=== PATIENT | female | born 1970 | race Caucasian/White ===

== ENCOUNTER 2024-02-17 12:45 | Emergency (ER) | payer OTHER ==
[2024-02-17] MEDS ORDERED: FAMOTIDINE 50 ML IV ONE (12:50)
[2024-02-17] MEDS ORDERED: MORPHINE Sulfate 2 MG/ML SYR IV ONE (12:50)
[2024-02-17] MEDS ORDERED: SODIUM CHLORIDE 0.9% 1,000 ML IV ONE (12:50)
[2024-02-17] MEDS ORDERED: Ondansetron Hydrochloride 4 MG/2 ML VIAL IV ONE (12:50)
[2024-02-17 13:13] LABS: BASO % 0.6 % (0.0-1.0); EOS # 0.2 10*3/uL (0.0-0.4); EOS % 3.1 % (1.0-4.0); HEMATOCRIT 36.3 % (37.0-47.0); LYMPH # 1.2 10*3/uL (1.3-4.4); LYMPH % 17.5 % (27.0-41.0); MEAN CELL VOLUME 86.8 fl (81.0-99.0); MEAN CORPUSCULAR HGB 26.8 pg (27.0-31.0); MEAN CORPUSCULAR HGB CONC 30.9 g/dl (33.0-37.0); MEAN PLATELET VOLUME 10.4 fl (9.6-12.3); MONO # 0.4 10*3/uL (0.1-1.0); MONO % 5.7 % (3.0-9.0); NEUT # 4.8 10*3/uL (2.3-7.9); NEUT % 72.4 % (47.0-73.0); PLATELET COUNT AUTOMATED 233 10*3/uL (130-400); RED BLOOD COUNT 4.18 10*6/uL (4.10-5.10); RED CELL DISTRI WIDTH 14.6 % (0-14.5); WHITE BLOOD COUNT 6.7 10*3/uL (4.8-10.8)
[2024-02-17 13:31] LABS: POTASSIUM 3.5 mmol/L (3.4-5.1)
[2024-02-17] MEDS ORDERED: diphenhydrAMINE hydrochloride 50 MG/ML VIAL IV ONE (13:45)
== END 2024-02-17 14:10 | disposition home or self-care (01) ==
LOC: ED 12:45
PROVIDERS: Emergency Medicine
DX: R07.89 Other chest pain (principal); Z88.0 Allergy status to penicillin

== ENCOUNTER 2024-02-27 16:19 | Emergency (ER) | payer OTHER ==
[~2024-02-27] VITALS: Ht 167.6 cm; Wt 113.4 kg
[2024-02-27] MEDS ORDERED: NAPROSYN500 MG PO (17:57)
[2024-02-27] MEDS ORDERED: Acetaminophen/Oxycodone 5 MG/325 MG TABLET PO ONE (18:00)
== END 2024-02-27 18:24 | disposition home or self-care (01) ==
LOC: ED 16:19
DX: S86.911A Strain of unspecified muscle(s) and tendon(s) at lower leg level, right leg, initial encounter (principal); Z88.0 Allergy status to penicillin; W01.0XXA Fall on same level from slipping, tripping and stumbling without subsequent striking against object, initial encounter; Y93.89 Activity, other specified; Y92.89 Other specified places as the place of occurrence of the external cause; Y99.8 Other external cause status

== ENCOUNTER → 2024-03-29 | Outpatient (CLI) | payer OTHER ==
[~2024-03-29] MED LIST: NAPROSYN500 MG PO
[2024-03-29 11:29] LABS: BASO # 0.1 10*3/uL (0.0-0.1); BASO % 0.8 % (0.0-1.0); EOS # 0.2 10*3/uL (0.0-0.4); EOS % 3.3 % (1.0-4.0); HEMATOCRIT 37.2 % (37.0-47.0); LYMPH # 1.4 10*3/uL (1.3-4.4); LYMPH % 22.5 % (27.0-41.0); MEAN CELL VOLUME 87.3 fl (81.0-99.0); MEAN CORPUSCULAR HGB 27.2 pg (27.0-31.0); MEAN CORPUSCULAR HGB CONC 31.2 g/dl (33.0-37.0); MEAN PLATELET VOLUME 10.4 fl (9.6-12.3); MONO # 0.4 10*3/uL (0.1-1.0); MONO % 6.6 % (3.0-9.0); NEUT % 66.3 % (47.0-73.0); PLATELET COUNT AUTOMATED 249 10*3/uL (130-400); RED BLOOD COUNT 4.26 10*6/uL (4.10-5.10); RED CELL DISTRI WIDTH 14.7 % (0-14.5)
[2024-03-29 11:57] LABS: POTASSIUM 3.9 mmol/L (3.4-5.1); TOTAL PROTEIN 6.8 gm/dL (6.0-8.0)
== END | disposition home or self-care (01) ==
LOC: LAB 10:47
PROVIDERS: ATTEND Nurse Practitioner Family
DX: I10 Essential (primary) hypertension (principal); E78.2 Mixed hyperlipidemia; E03.9 Hypothyroidism, unspecified; F31.32 Bipolar disorder, current episode depressed, moderate; E55.9 Vitamin D deficiency, unspecified

== ENCOUNTER 2024-05-08 12:19 | Emergency (ER) | payer OTHER ==
[~2024-05-08] VITALS: Ht 167.6 cm; Wt 113.9 kg
[2024-05-08] MEDS ORDERED: HYDROCODONE-AC1 EAC1 PO (12:28)
[2024-05-08] MEDS ORDERED: ATORVASTATIN CA20 M1 PO (12:28)
[2024-05-08] MEDS ORDERED: PROGESTERONE100 M2 PO (12:28)
[2024-05-08] MEDS ORDERED: GOOD NEIGHBOR L10 MG PO (12:28)
[2024-05-08] MEDS ORDERED: HYDROCHLOROTH12.5 M2 PO (12:28)
[2024-05-08] MEDS ORDERED: GABAPENTIN800 MG PO (12:28)
[2024-05-08] MEDS ORDERED: MONTELUKAST SOD10 MG PO (12:29)
[2024-05-08] MEDS ORDERED: BUSPIRONE HCL30 MG PO (12:29)
[2024-05-08] MEDS ORDERED: VITAMIN D3125 MCG PO (12:29)
[2024-05-08] MEDS ORDERED: AMLODIPINE BESYL5 MG PO (12:29)
[2024-05-08] MEDS ORDERED: diphenhydrAMINE hydrochloride 50 MG/ML VIAL IV ONE (13:55)
[2024-05-08] MEDS ORDERED: Metoclopramide Hydrochloride 10 MG/2 ML VIAL IV ONE (13:55)
[2024-05-08] MEDS ORDERED: Meclizine Hydrochloride 25 MG TAB PO ONE (14:40)
[2024-05-08] MEDS ORDERED: Ketorolac Tromethamine 30 MG/ML VIAL IV ONE (15:15)
[2024-05-08] MEDS ORDERED: ANTIVERT25 M2 PO (16:04)
== END 2024-05-08 16:14 | disposition home or self-care (01) ==
LOC: ED 12:19
DX: R42 Dizziness and giddiness (principal); G43.909 Migraine, unspecified, not intractable, without status migrainosus; I10 Essential (primary) hypertension; Z88.0 Allergy status to penicillin

== ENCOUNTER → 2024-08-19 | Outpatient (CLI) | payer OTHER ==
[~2024-08-19] MED LIST changes: +AMLODIPINE BESYL5 MG PO; +ANTIVERT25 M2 PO; +ATORVASTATIN CA20 M1 PO; +BUSPIRONE HCL30 MG PO; +GABAPENTIN800 MG PO; +GOOD NEIGHBOR L10 MG PO; +HYDROCHLOROTH12.5 M2 PO; +HYDROCODONE-AC1 EAC1 PO; +MONTELUKAST SOD10 MG PO; +PROGESTERONE100 M2 PO; +VITAMIN D3125 MCG PO
== END | disposition home or self-care (01) ==
LOC: US 12:23
PROVIDERS: ATTEND Physician Assistant
DX: R10.2 Pelvic and perineal pain (principal); Z90.710 Acquired absence of both cervix and uterus

== ENCOUNTER 2024-10-02 13:35 | Emergency (ER) | payer OTHER ==
[~2024-10-02] VITALS: Ht 167.6 cm; Wt 111.1 kg
[2024-10-02] MEDS ORDERED: DEBROX15 ML OT (14:15)
[2024-10-02] MEDS ORDERED: ZYRTEC10 M2 PO (14:15)
== END 2024-10-02 14:25 | disposition home or self-care (01) ==
LOC: ED 13:35
DX: H61.21 Impacted cerumen, right ear (principal); H65.91 Unspecified nonsuppurative otitis media, right ear; M54.2 Cervicalgia; R42 Dizziness and giddiness; I10 Essential (primary) hypertension; G43.909 Migraine, unspecified, not intractable, without status migrainosus; Z88.0 Allergy status to penicillin

== ENCOUNTER 2024-11-22 12:57 | Emergency (ER) | payer OTHER ==
[~2024-11-22] VITALS: Ht 167.6 cm; Wt 111.1 kg
[~2024-11-22 12:57] MED LIST changes: +DEBROX15 ML OT; +ZYRTEC10 M2 PO
[2024-11-22] MEDS ORDERED: Ketorolac Tromethamine 30 MG/ML VIAL IM ONE (13:35)
== END 2024-11-22 15:01 | disposition home or self-care (01) ==
LOC: ED 12:57
DX: M25.572 Pain in left ankle and joints of left foot (principal); I10 Essential (primary) hypertension; G43.909 Migraine, unspecified, not intractable, without status migrainosus; Z79.899 Other long term (current) drug therapy; Z88.0 Allergy status to penicillin

== ENCOUNTER → 2024-12-05 | Outpatient (CLI) | payer OTHER | END | disposition home or self-care (01) | LOC: MAMMO 10:01 | PROVIDERS: ATTEND Nurse Practitioner Family | DX: Z12.31 Encounter for screening mammogram for malignant neoplasm of breast (principal); Z00.00 Encounter for general adult medical examination without abnormal findings; R92.323 Mammographic fibroglandular density, bilateral breasts ==

== ENCOUNTER 2025-01-08 07:02 | Emergency (ER) | payer OTHER ==
[~2025-01-08] VITALS: Ht 167.6 cm; Wt 68.0 kg
[2025-01-08] MEDS ORDERED: CLINDAMYCIN HC300 MG PO (07:51)
== END 2025-01-08 07:54 | disposition home or self-care (01) ==
LOC: ED 07:02
DX: N61.1 Abscess of the breast and nipple (principal); I10 Essential (primary) hypertension; G43.909 Migraine, unspecified, not intractable, without status migrainosus; Z79.899 Other long term (current) drug therapy; Z88.0 Allergy status to penicillin

== ENCOUNTER → 2025-01-10 | Outpatient (CLI) | payer OTHER ==
[~2025-01-10] MED LIST changes: +CLINDAMYCIN HC300 MG PO
[2025-01-10 09:53] LABS: BASO % 0.5 % (0.0-1.0); EOS # 0.3 10*3/uL (0.0-0.4); EOS % 3.8 % (1.0-4.0); HEMATOCRIT 35.7 % (37.0-47.0); MEAN CELL VOLUME 87.3 fl (81.0-99.0); MEAN CORPUSCULAR HGB 26.9 pg (27.0-31.0); MEAN CORPUSCULAR HGB CONC 30.8 g/dl (33.0-37.0); MEAN PLATELET VOLUME 10.3 fl (9.6-12.3); MONO # 0.4 10*3/uL (0.1-1.0); MONO % 6.1 % (3.0-9.0); NEUT # 4.6 10*3/uL (2.3-7.9); NEUT % 70.5 % (47.0-73.0); PLATELET COUNT AUTOMATED 234 10*3/uL (130-400); RED BLOOD COUNT 4.09 10*6/uL (4.10-5.10); RED CELL DISTRI WIDTH 14.6 % (0-14.5); WHITE BLOOD COUNT 6.5 10*3/uL (4.8-10.8)
[2025-01-10 10:18] LABS: ALKALINE PHOSPHATASE 79 U/L (46-116); BUN 12 mg/dl (9-23); CHLORIDE 105 mmol/L (98-107); POTASSIUM 4.3 mmol/L (3.4-5.1); SGPT/ALT 20 U/L (5-49); TOTAL PROTEIN 6.4 gm/dL (6.0-8.0); TRIGLYCERIDES 145 mg/dl (<150)
[2025-01-10 10:39] LABS: VITAMIN D, 25-HYDROXY 50.2 ng/mL (30-100)
== END | disposition home or self-care (01) ==
LOC: LAB 09:22
PROVIDERS: Nurse Practitioner Family; ATTEND Student in an Organized Health Care Education/Training Program
DX: I10 Essential (primary) hypertension (principal); E03.9 Hypothyroidism, unspecified; E55.9 Vitamin D deficiency, unspecified; K59.09 Other constipation; E44.1 Mild protein-calorie malnutrition; E78.2 Mixed hyperlipidemia; F51.01 Primary insomnia; E66.01 Morbid (severe) obesity due to excess calories; Z79.899 Other long term (current) drug therapy

== ENCOUNTER → 2025-01-16 | Outpatient (CLI) | payer OTHER | END | disposition home or self-care (01) | LOC: MRI 02:37 | PROVIDERS: ATTEND Physician Assistant | DX: M50.11 Cervical disc disorder with radiculopathy, high cervical region (principal); M47.23 Other spondylosis with radiculopathy, cervicothoracic region; M48.03 Spinal stenosis, cervicothoracic region; M25.78 Osteophyte, vertebrae ==

== ENCOUNTER 2025-03-19 10:56 | Emergency (ER) | payer OTHER ==
[~2025-03-19] VITALS: Ht 162.5 cm; Wt 113.4 kg
[2025-03-19] MEDS ORDERED: Acetaminophen/Oxycodone 5 MG/325 MG TABLET PO ONE (11:30)
== END 2025-03-19 12:54 | disposition home or self-care (01) ==
LOC: ED 10:56
DX: S93.402A Sprain of unspecified ligament of left ankle, initial encounter (principal); I10 Essential (primary) hypertension; Z88.0 Allergy status to penicillin; Z88.5 Allergy status to narcotic agent; Z79.899 Other long term (current) drug therapy; Z90.710 Acquired absence of both cervix and uterus; X50.1XXA Overexertion from prolonged static or awkward postures, initial encounter; Y93.89 Activity, other specified; Y92.89 Other specified places as the place of occurrence of the external cause; Y99.8 Other external cause status

== ENCOUNTER 2025-05-09 08:47 | Emergency (ER) | payer OTHER ==
[~2025-05-09] VITALS: Ht 167.6 cm; Wt 107.5 kg
[2025-05-09] MEDS ORDERED: diazePAM 5 MG TAB PO ONE (09:15)
[2025-05-09] MEDS ORDERED: SODIUM CHLORIDE 0.9% 1,000 ML IV ONE (09:15)
[2025-05-09 09:28] LABS: BASO # 0.0 10*3/uL (0.0-0.1); BASO % 0.4 % (0.0-1.0); EOS # 0.2 10*3/uL (0.0-0.4); EOS % 3.7 % (1.0-4.0); MEAN CELL VOLUME 87.4 fl (81.0-99.0); MEAN CORPUSCULAR HGB 26.4 pg (27.0-31.0); MEAN PLATELET VOLUME 10.4 fl (9.6-12.3); MONO # 0.5 10*3/uL (0.1-1.0); MONO % 9.5 % (3.0-9.0); NEUT # 3.1 10*3/uL (2.3-7.9); NEUT % 61.9 % (47.0-73.0); NUCLEATED RED BLOOD CELL 0.0 % (0.0-0.0); NUCLEATED RED BLOOD CELL 0.0 10*3/uL (0.0-0.0); PLATELET COUNT AUTOMATED 237 10*3/uL (130-400); RED CELL DISTRI WIDTH 16.0 % (0-14.5)
[2025-05-09 09:48] LABS: BUN 13 mg/dl (9-23)
[2025-05-09] MEDS ORDERED: ANTIVERT25 M2 PO (10:07)
== END 2025-05-09 10:19 | disposition home or self-care (01) ==
LOC: ED 08:47
PROVIDERS: Emergency Medicine
DX: R42 Dizziness and giddiness (principal); R11.0 Nausea; I10 Essential (primary) hypertension; G43.909 Migraine, unspecified, not intractable, without status migrainosus; Z98.84 Bariatric surgery status

== ENCOUNTER → 2025-05-20 | Outpatient (CLI) | payer OTHER ==
[2025-05-20 17:45] LABS: BASO # 0.1 10*3/uL (0.0-0.1); BASO % 0.8 % (0.0-1.0); EOS # 0.2 10*3/uL (0.0-0.4); EOS % 3.3 % (1.0-4.0); MEAN CELL VOLUME 88.1 fl (81.0-99.0); MEAN CORPUSCULAR HGB 26.5 pg (27.0-31.0); MEAN PLATELET VOLUME 11.1 fl (9.6-12.3); MONO # 0.4 10*3/uL (0.1-1.0); MONO % 5.5 % (3.0-9.0); NEUT # 5.1 10*3/uL (2.3-7.9); NEUT % 69.9 % (47.0-73.0); NUCLEATED RED BLOOD CELL 0.0 % (0.0-0.0); NUCLEATED RED BLOOD CELL 0.0 10*3/uL (0.0-0.0); PLATELET COUNT AUTOMATED 282 10*3/uL (130-400); RED CELL DISTRI WIDTH 16.3 % (0-14.5)
[2025-05-20 18:08] LABS: BUN 15 mg/dl (9-23); LDL CHOLESTEROL 74 mg/dL (9-159); SGPT/ALT 37 U/L (5-49); VITAMIN D, 25-HYDROXY 55.8 ng/mL (30-100)
== END | disposition home or self-care (01) ==
LOC: RHCWE 12:46
PROVIDERS: ATTEND Nurse Practitioner Family
DX: I10 Essential (primary) hypertension (principal); E78.2 Mixed hyperlipidemia; R42 Dizziness and giddiness; E03.9 Hypothyroidism, unspecified; F31.32 Bipolar disorder, current episode depressed, moderate; Z00.00 Encounter for general adult medical examination without abnormal findings